=== PATIENT | male | born 1980 | race Caucasian/White ===

== ENCOUNTER 2017-01-25 21:39 | Emergency (ER) | payer OTHER ==
[2017-01-26] MEDS ORDERED: ONDANSETRON 4 MG TAB.RAPDIS PO ONE (00:06)
[2017-01-26] MEDS ORDERED: KETOROLAC TROMETHAMINE 60 MG/2 ML SDV IM ONE (00:06)
[2017-01-26] MEDS ORDERED: OXYCODONE-ACETAMINOPHEN 5-325 MG TABLET PO ONE (00:06)
--- NOTE | 2017-01-26 00:07 | ER Document Report ---
ED Medical Screen (RME) - General Chief Complaint: Inability to Void Stated Complaint: POSSIBLE KIDNEY STONE Time Seen by Provider: 01/26/17 00:05 Notes: Patient is a 36-year-old male who comes emergency department for chief complaint of left lower abdominal and left flank pain. He states he has known very large kidney stones that he thinks he might be passing 1 of them. He reports he urinary hesitancy and some hematuria tonight. He denies fever, vomiting. TRAVEL OUTSIDE OF THE [place] IN LAST 30 DAYS: No - Related Data Allergies/Adverse Reactions: No Known Allergies Allergy (Unverified 10/11/15 12:04) Past Medical History Renal/ Medical History: Denies: Hx Peritoneal Dialysis GI Medical History: Reports: Hx Ulcer Physical Exam - Vital signs Vitals: Temp Pulse Resp BP Pulse Ox 98.7 F 54 L 16 139/82 H 99 01/25/17 22:52 01/25/17 22:52 01/25/17 22:52 01/25/17 22:52 01/25/17 22:52 - General General appearance: Anxious In distress: Moderate - patient appears to be in pain - Abdominal Tenderness: Nontender - No specific abdominal tenderness noted - Back Back: CVA tenderness - left only Course - Vital Signs Vital signs: Temp Pulse Resp BP Pulse Ox 98.7 F 57 L 16 139/82 H 99 01/25/17 22:53 01/25/17 22:53 01/25/17 22:53 01/25/17 22:53 01/25/17 22:53
[2017-01-26 00:46] LABS: ANION GAP 14 (5-19); BLOOD UREA NITROGEN 18 mg/dL (7-20); CALCIUM 9.7 mg/dL (8.4-10.2); CARBON DIOXIDE 26 mmol/L (22-30); CHLORIDE 100 mmol/L (98-107); CREATININE RESULT 1.16 mg/dL (0.52-1.25); GLUCOSE 131 mg/dL (75-110); POTASSIUM 4.2 mmol/L (3.6-5.0); SODIUM 139.8 mmol/L (137-145)
[2017-01-26 01:10] LABS: APPEARANCE,URINE CLOUDY; BILIRUBIN,URINE NEGATIVE (NEGATIVE); GLUCOSE, URINE NEGATIVE (NEGATIVE); KETONES,URINE 80 mg/dL (NEGATIVE); LEUKOCYTE ESTERASE,URINE TRACE (NEGATIVE); NITRITE,URINE NEGATIVE (NEGATIVE); PROTEIN,URINE 100 mg/dL (NEGATIVE); UROBILINOGEN,URINE NEGATIVE mg/dL (<2.0)
--- NOTE | 2017-01-26 02:40 | RADIOLOGY REPORT (SQ) ---
EXAM DESCRIPTION: KUB/ABDOMEN (SINGLE VIEW) COMPLETED DATE/TIME: 01/26/2017 2:20 am REASON FOR STUDY: ? large kidney stone location COMPARISON: None. NUMBER OF VIEWS: One view. TECHNIQUE: Supine radiographic image of the abdomen acquired. LIMITATIONS: None. FINDINGS: BOWEL GAS PATTERN: Normal bowel gas pattern. No dilated loops. CALCIFICATIONS: 1.6 cm stone of the inferior pole, left kidney. SOFT TISSUES: No gross mass or suggestion of organomegaly. HARDWARE: None in the abdomen. BONES: No acute fracture. No worrisome bone lesions. OTHER: No other significant finding. IMPRESSION: Chronic 1.6 cm left nephrolithiasis. TECHNICAL DOCUMENTATION: JOB ID: [id number] [employer]- All Rights Reserved
[2017-01-26] MEDS ORDERED: NORMAL SALINE 1000 ML 1,000 ML IV ONE ×2 (03:05)
--- NOTE | 2017-01-26 04:01 | ER Document Report ---
ED GI/ - General Chief Complaint: Inability to Void Stated Complaint: POSSIBLE KIDNEY STONE Time Seen by Provider: 01/26/17 00:05 Notes: Patient is a 36-year-old male who comes emergency department for chief complaint of left lower abdominal pain and left flank pain. He states that he has a known history of large kidney stones and he believes he might be passing 1 of them. He reports urinary hesitancy and hematuria. He denies fever or chills. He reports 2-3 episodes of vomiting earlier. He states he follows with [facility] urology and they have been discussing lithotripsy with him. He states he frequently gets symptoms from his stones but tonight was worse. TRAVEL OUTSIDE OF THE [place] IN LAST 30 DAYS: No - Related Data Allergies/Adverse Reactions: No Known Allergies Allergy (Unverified 10/11/15 12:04) Past Medical History - General Information source: Patient - Social History Smoking Status: Never Smoker Frequency of alcohol use: None Drug Abuse: None Lives with: Family Family History: Reviewed & Not Pertinent Patient has suicidal ideation: No Patient has homicidal ideation: No Renal/ Medical History: Reports: Hx Kidney Stones. Denies: Hx Peritoneal Dialysis GI Medical History: Reports: Hx Ulcer Surgical Hx: Negative - Immunizations Immunizations up to date: Yes Hx Diphtheria, Pertussis, Tetanus Vaccination: Yes Review of Systems - Review of Systems Constitutional: No symptoms reported EENT: No symptoms reported Cardiovascular: No symptoms reported Respiratory: No symptoms reported Gastrointestinal: See HPI Genitourinary: See HPI Male Genitourinary: No symptoms reported Musculoskeletal: No symptoms reported Skin: No symptoms reported Hematologic/Lymphatic: No symptoms reported Neurological/Psychological: No symptoms reported Physical Exam - Vital signs Vitals: Temp Pulse Resp BP Pulse Ox 98.7 F 54 L 16 139/82 H 99 01/25/17 22:52 01/25/17 22:52 01/25/17 22:52 01/25/17 22:52 01/25/17 22:52 Interpretation: Normal - General General appearance: Alert, Anxious In distress: Moderate - On initial evaluation patient appears to be in pain, on repeat evaluation patient is calm and relaxed - HEENT Head: Normocephalic, Atraumatic Eyes: Normal Pupils: PERRL - Respiratory Respiratory status: No respiratory distress Chest status: Nontender Breath sounds: Normal Chest palpation: Normal - Cardiovascular Rhythm: Regular, Bradycardia - Borderline bradycardia. No: Tachycardia Heart sounds: Normal auscultation, S1 appreciated, S2 appreciated Murmur: No - Abdominal Inspection: Normal Distension: No distension Bowel sounds: Normal Tenderness: Nontender. No: Tender, Guarding Organomegaly: No organomegaly - Back Back: CVA tenderness - Left-sided CVA tenderness on initial examination, normal on reexamination. No: Vertebra tenderness - Extremities General upper extremity: Normal inspection, Nontender, Normal color, Normal ROM , Normal temperature General lower extremity: Normal inspection, Nontender, Normal color, Normal ROM , Normal temperature, Normal weight bearing. No: Earnest's sign - Neurological Neuro grossly intact: Yes Cognition: Normal Orientation: AAOx4 Lynn Coma Scale Eye Opening: Spontaneous Rosa Coma Scale Verbal: Oriented Rosa Coma Scale Motor: Obeys Commands Lynn Coma Scale Total: 15 Speech: Normal Motor strength normal: LUE, RUE, LLE, RLE Sensory: Normal - Psychological Associated symptoms: Normal affect, Normal mood - Skin Skin Temperature: Warm Skin Moisture: Dry Skin Color: Normal Course - Re-evaluation Re-evalutation: KUB showing 1.6 cm left sided nephrolithiasis with no other obvious abnormality. BMP does not show any kidney abnormality. Urine shows hematuria and dehydration. No fever, tachycardia, hypotension, or evidence of infection. Patient asymptomatic after treatments from triage. Patient given IV fluids. Patient stating he is ready to leave, he has urology follow-up already established, discussed return precautions in detail, patient states understanding and agreement. - Vital Signs Vital signs: Temp Pulse Resp BP Pulse Ox 98.7 F 88 18 145/87 H 98 01/25/17 22:53 01/26/17 04:29 01/26/17 04:29 01/26/17 04:29 01/26/17 04:29 - Laboratory Result Diagrams: 01/26/17 00:15 Laboratory results interpreted by me: 01/26/17 01/26/17 00:15 00:20 Glucose 131 H Urine Protein 100 H Urine Ketones 80 H Urine Blood LARGE H Ur Leukocyte Esterase TRACE H Urine Ascorbic Acid 40 H Discharge - Discharge Clinical Impression: Nephrolithiasis, Flank pain Hematuria Qualifiers: Hematuria type: unspecified type Qualified Code(s): R31.9 - Hematuria, unspecified Vomiting Qualifiers: Vomiting type: unspecified Vomiting Intractability: non-intractable Nausea presence: with nausea Qualified Code(s): R11.2 - Nausea with vomiting, unspecified Condition: Stable Disposition: HOME, SELF-CARE Additional Instructions: Your x-ray imaging shows a 1.6 cm left-sided kidney stone. Your urine shows blood but no infection. Your kidney function is normal. You do not have a fever tonight. Take the pain medication and nausea medication as prescribed if needed. Follow-up closely with your urologist for additional management. Return to the emergency department for any concerning or worsening symptoms including fever, uncontrolled vomiting, worsening pain, etc. Prescriptions: Morphine Sulfate [Morphine Ir 15 Mg Tablet] 15 mg PO Q4HP PRN #15 tablet PRN Reason: Promethazine HCl [Phenergan 25 mg Tablet] 1 - 2 tab PO Q6H PRN #15 tablet PRN Reason:
[2017-01-26 04:31] VITALS: BP 145/87
== END 2017-01-26 04:30 | disposition home or self-care (01) ==
LOC: ER 21:39
DX: N20.0 Calculus of kidney (principal); R33.9 Retention of urine, unspecified; R31.9 Hematuria, unspecified; R10.32 Left lower quadrant pain; R11.2 Nausea with vomiting, unspecified
CPT/HCPCS: 99284; 96372; 36415; 80048; 81001; 74000; J1885; S0119

== ENCOUNTER 2018-07-16 10:27 | Emergency (ER) | payer OTHER ==
[2018-07-16 11:08] VITALS: BP 138/77
[2018-07-16] MEDS ORDERED: TETRACAINE HCL 0.5% OPH SOLN 4 ML OS ONE (11:47)
--- NOTE | 2018-07-16 11:50 | ER Document Report ---
ED Medical Screen (RME) - General Chief Complaint: Foreign Body in Eye Stated Complaint: EYE PAIN Time Seen by Provider: 07/16/18 11:44 Mode of Arrival: Ambulatory Notes: Patient presents emergency department with complaints of something in his left eye. 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 He reports it did not really start bothering him until the next day. Increased irritation today. Denies visual concerns. Reports he was working without goggles. No other c/o such as f/n/v. I have greeted and performed a rapid initial assessment of this patient. A comprehensive ED assessment and evaluation of the patient, analysis of test results and completion of the medical decision making process will be conducted by additional ED providers. TRAVEL OUTSIDE OF THE [place] IN LAST 30 DAYS: No - Related Data Allergies/Adverse Reactions: No Known Allergies Allergy (Unverified 10/11/15 12:04) Past Medical History Renal/ Medical History: Reports: Hx Kidney Stones. Denies: Hx Peritoneal Dialysis GI Medical History: Reports: Hx Ulcer - Immunizations Immunizations up to date: Yes Hx Diphtheria, Pertussis, Tetanus Vaccination: Yes Physical Exam - Vital signs Vitals: Temp Pulse Resp BP Pulse Ox 98.6 F 93 18 138/77 H 98 07/16/18 11:04 07/16/18 11:04 07/16/18 11:04 07/16/18 11:04 07/16/18 11:04 Course - Vital Signs Vital signs: Temp Pulse Resp BP Pulse Ox 98.6 F 93 18 138/77 H 98 07/16/18 11:04 07/16/18 11:04 07/16/18 11:04 07/16/18 11:04 07/16/18 11:04
--- NOTE | 2018-07-16 13:39 | ER Document Report ---
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 He states that he immediately rinsed his eye out with water but the foreign body continued to feel present. Patient states that he looked in the mirror and saw a brown dot at the 9 o'clock position. Patient states that he continue to rinse his eye and rubbed his eye but was unable to get the foreign body out. Patient denies any loss of vision, blurred vision, double vision, spots in visual field. patient does not wear glasses or contacts. He denies any medical history. Not on any meds patient's. TRAVEL OUTSIDE OF THE [place] IN LAST 30 DAYS: No - HPI Onset: Other - 2 days ago Injury: Yes Occurred at: Work Quality of pain: Throbbing Exposure: Other - grinding metal Safety glasses worn: No Contact lenses worn: No Eye irrigated by: patient Associated symptoms: Pain, Redness - Related Data Allergies/Adverse Reactions: No Known Allergies Allergy (Unverified 10/11/15 12:04) Past Medical History - General Information source: Patient - Social History Smoking Status: Current Every Day Smoker Frequency of alcohol use: None Drug Abuse: None Family History: Reviewed & Not Pertinent Patient has suicidal ideation: No Patient has homicidal ideation: No Renal/ Medical History: Reports: Hx Kidney Stones. Denies: Hx Peritoneal Dialysis GI Medical History: Reports: Hx Ulcer - Immunizations Immunizations up to date: Yes Hx Diphtheria, Pertussis, Tetanus Vaccination: Yes Review of Systems - Review of Systems Constitutional: No symptoms reported EENT: Eye pain Cardiovascular: No symptoms reported Respiratory: No symptoms reported Gastrointestinal: No symptoms reported Genitourinary: No symptoms reported Musculoskeletal: No symptoms reported Skin: No symptoms reported Hematologic/Lymphatic: No symptoms reported Neurological/Psychological: No symptoms reported -: Yes All other systems reviewed and negative Physical Exam - Vital signs Vitals: Temp Pulse Resp BP Pulse Ox 98.6 F 93 18 138/77 H 98 07/16/18 11:04 07/16/18 11:04 07/16/18 11:04 07/16/18 11:04 07/16/18 11:04 - Notes Notes: PHYSICAL EXAMINATION: GENERAL: Well-appearing, well-nourished and in no acute distress. HEAD: Atraumatic, normocephalic. EYES: Pupils equal round and reactive to light, extraocular movements intact, conjunctiva injected. Rust ring noted to the 9 oclock position. ENT: Nares patent, oropharynx clear without exudates. Moist mucous membranes. NECK: Normal range of motion, supple without lymphadenopathy Musculoskeletal: Normal range of motion, no pitting or edema. No cyanosis. NEUROLOGICAL: Cranial nerves grossly intact. Normal speech, normal gait. Normal sensory, motor exams PSYCH: Normal mood, normal affect. SKIN: Warm, Dry, normal turgor, no rashes or lesions noted. - HEENT Visual acuity- Right eye: 20/20 Visual acuity- Left eye: 20/15 Visual acuity- Both eyes: 20/15 Corrective lenses worn: No Course - Re-evaluation Re-evalutation: 07/16/18 13:37 Tetracaine placed into the left eye. A rust ring was appreciated at the 9 o'clock position. Fluorescing was used to stain the eye. No corneal abrasions appreciated. Rest ring was attempted to be removed with a Q-tip, 20-gauge needle. Only part of the rust ring appears to be removed. Patient still complains of foreign body sensation. I contacted [facility]. Patient is able to be seen in the office today. I instructed the patient to go straight over to the eye office. Patient is agreeable with the plan of care. 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 [address] Referrals: [facility] [Primary Care Provider] - Follow up as needed
== END 2018-07-16 14:00 | disposition home or self-care (01) ==
LOC: ER 10:27
DX: T15.02XA Foreign body in cornea, left eye, initial encounter (principal); X58.XXXA Exposure to other specified factors, initial encounter; Y99.0 Civilian activity done for income or pay; Z87.442 Personal history of urinary calculi
CPT/HCPCS: 99283; 65220; J3490